=== PATIENT | female | born 1995 | race Caucasian/White ===

== ENCOUNTER 2021-03-28 11:28 | Emergency (ER) | payer BC ==
[2021-03-28 12:03] LABS: Urine Blood 1+ (Negative); Urine Glucose Negative (Negative); Urine Protein Trace (Negative); Urine Specific Gravity >=1.030 (1.005-1.030)
[2021-03-28 12:28] LABS: Absolute Lymphocytes (CBC) 1.3 K/uL (0.7-4.9); Basophils % 0.3 % (0-1.3); Hematocrit 43.7 % (36.0-45.0); Lymphocytes % 10.5 % (15.3-44.8); MPV 7.8 fL (7.6-11.3); RBC Red Blood Cell Count 4.77 M/uL (3.86-4.86)
[2021-03-28 12:37] LABS: ALT/SGPT 19 U/L (12-78); AST/SGOT 12 U/L (15-37); Albumin 3.6 g/dL (3.4-5.0); Alkaline Phosphatase 53 U/L (45-117); BUN Blood Urea Nitrogen 10 mg/dL (7-18); Bicarbonate 26 mmol/L (21-32); Bilirubin Direct < 0.1 mg/dL (0-0.2); Bilirubin Total 0.3 mg/dL (0.2-1.0); Glucose Level 131 mg/dL (74-106); Lipase 50 U/L (73-393); Potassium 4.5 mmol/L (3.5-5.1); Protein, Total 7.8 g/dL (6.4-8.2); Sodium Level 141 mmol/L (136-145)
--- NOTE | 2021-03-28 13:51 | RAD REPORT ---
EXAM DESCRIPTION: US - Abdomen Exam Limited - 03/28/2021 1:10 pm CLINICAL HISTORY: Abdominal pain. Right upper quadrant pain COMPARISON: None. FINDINGS: The gallbladder wall is not thickened. A gallstone is not seen. The biliary tree is normal caliber. IMPRESSION: Unremarkable gallbladder ultrasound.
--- NOTE | 2021-03-28 14:16 | EDPHYS ---
Physician Documentation [facility] Name: Bharati Boyce Age: 26 yrs Sex: Female : 1995 Arrival Date: 03/28/2021 Time: 11:28 Bed 6 Private MD: ED Physician Sanjuanita Murcia HPI: 03/28 14:10 This 26 yrs old Female presents to ER via Ambulatory with complaints of ma2 Diarrhea, Abdominal Cramping. 14:10 Onset: The symptoms/episode began/occurred gradually, 2 day(s) ago. Possible causes: ma2 unknown. Associated signs and symptoms: Pertinent negatives: belching, dysuria, flatulence, GI bleeding, hematuria. Severity of symptoms: At their worst the symptoms were moderate in the emergency department the symptoms are unchanged. The patient has not experienced similar symptoms in the past. here with diarrhea and abdominal cramping . 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 - Social history:: Smoking status: Patient denies any tobacco usage or history of. Patient/guardian denies using alcohol, street drugs, The patient lives with family. - Family history:: not pertinent. ROS: 14:10 Constitutional: Negative for fever, chills, and weight loss. ma2 14:10 All other systems are negative. Exam: 14:10 Constitutional: This is a well developed, well nourished patient who is awake, alert, ma2 and in no acute distress. ENT: Nares patent. No nasal discharge, no septal abnormalities noted. Tympanic membranes are normal and external auditory canals are clear. Oropharynx with no redness, swelling, or masses, exudates, or evidence of obstruction, uvula midline. Mucous membranes moist. Neck: Trachea midline, no thyromegaly or masses palpated, and no cervical lymphadenopathy. Supple, full range of motion without nuchal rigidity, or vertebral point tenderness. No Meningismus. Chest/axilla: Normal chest wall appearance and motion. Nontender with no deformity. No lesions are appreciated. Cardiovascular: Regular rate and rhythm with a normal S1 and S2. No gallops, murmurs, or rubs. Normal PMI, no JVD. No pulse deficits. Respiratory: Lungs have equal breath sounds bilaterally, clear to auscultation and percussion. No rales, rhonchi or wheezes noted. No increased work of breathing, no retractions or nasal flaring. Abdomen/GI: Soft, non-tender, with normal bowel sounds. No distension or tympany. No guarding or rebound. No evidence of tenderness throughout. Skin: Warm, dry with normal turgor. Normal color with no rashes, no lesions, and no evidence of cellulitis. MS/ Extremity: Pulses equal, no cyanosis. Neurovascular intact. Full, normal range of motion. Neuro: Awake and alert, GCS 15, oriented to person, place, time, and situation. Cranial nerves II-XII grossly intact. Motor strength 5/5 in all extremities. Sensory grossly intact. Cerebellar exam normal. Normal gait. Vital Signs: 11:32 BP 134 / 91; Pulse 91; Resp 18 S; Temp 97.6(TE); Pulse Ox 100% on R/A; Weight 75.75 kg aa5 (R); Height 5 ft. 4 in. (162.56 cm) (R); 13:00 BP 130 / 78; Pulse 65; Resp 16; Pulse Ox 97% ; bp 14:46 BP 144 / 90; Pulse 62; Resp 17; Temp 97.8; Pulse Ox 97% ; bp 11:32 Body Mass Index 28.67 (75.75 kg, 162.56 cm) aa5 MDM: 11:41 Patient medically screened. ma2 14:10 Differential diagnosis: gastritis, cholecystitis, pancreatitis, viral gastroenteritis, ma2 gastroenteritis. Data reviewed: vital signs, nurses notes. Counseling: I had a detailed discussion with the patient and/or guardian regarding: the historical points, exam findings, and any diagnostic results supporting the discharge/admit diagnosis, the presence of at least one elevated blood pressure reading (>120/80) during this emergency department visit, the need for outpatient follow up. Response to treatment: the patient's symptoms have markedly improved after treatment. ED course: i recommended ct a/p to rule out diverticulitis and appendicitis, patient declined d/t radiations. I also recommend antibiotics however she also declined. she states she will see her pcp as she does not want higher er bill. i explained all risk and benefits. she understands risk of not having ct abd including having a rupture appendix and sepsis, i explained return precaution. 03/28 11:40 Order name: Basic Metabolic Panel; Complete Time: 12:43 ma2 03/28 11:40 Order name: CBC with Diff; Complete Time: 12:43 ma2 03/28 11:40 Order name: Hepatic Function; Complete Time: 12:43 ma2 03/28 11:40 Order name: Lipase; Complete Time: 12:43 ma2 03/28 12:02 Order name: Urine --Ancillary (enter results); Complete Time: 13:51 eb 03/28 12:02 Order name: Urine Dipstick-Ancillary; Complete Time: 12:43 EDMS 03/28 11:40 Order name: Labs collected and sent; Complete Time: 12:47 ma2 03/28 11:40 Order name: Urine Dipstick-Ancillary (obtain specimen); Complete Time: 12:04 ma2 03/28 11:40 Order name: Urine Test (obtain specimen); Complete Time: 12:04 ma2 03/28 12:01 Order name: US Abdomen Limited; Complete Time: 13:58 ma2 Administered Medications: 12:02 Not Given (Patient Refused): NS 0.9% 1000 ml IV at 1 bolus Per protocol; 1000 mL bolus ap3 Disposition Summary: 03/28/21 14:15 Discharge Ordered Location: Home ma2 Condition: Stable ma2 Diagnosis - Abdominal pain, Generalized ma2 - Diarrhea, unspecified ma2 Followup: ma2 - With: Private Physician - When: Tomorrow - Reason: Continuance of care Discharge Instructions: - Discharge Summary Sheet ma2 - Abdominal Pain, Adult ma2 - Food Choices to Help Relieve Diarrhea, Adult ma2 - Diarrhea, Adult ma2 Forms: - Medication Reconciliation Form ma2 - Thank You Letter ma2 - Antibiotic Education ma2 - Prescription Opioid Use ma2 Signatures: Dispatcher [employer] Nasima Adams RN RN [email or web address] Sanjuanita Murcia MD MD ma2 Kathy Morrison RN ap3 Corrections: (The following items were deleted from the chart) 11:34 11:34 Allergies: Aspirin; aa5 aa5 12:02 11:40 IV Saline Lock ordered. ma2 ap3 12:04 11:41 Abdomen Pelvis W Con+CT.RAD.BRZ ordered. EDMS EDMS
--- NOTE | 2021-03-28 14:16 | ER ---
Nurse's Notes [facility] Name: Bharati Boyce Age: 26 yrs Sex: Female : 1995 Arrival Date: 03/28/2021 Time: 11:28 Bed 6 Private MD: Diagnosis: Abdominal pain, Generalized;Diarrhea, unspecified Presentation: 03/28 11:32 Chief complaint: Patient states: generalized abd pain since and diarrhea. Pt aa5 denies vomiting, reports nausea. Coronavirus screen: diarrhea, nausea. Ebola Screen: No symptoms or risks identified at this time. Initial Sepsis Screen: Does the patient meet any 2 criteria? No. Patient's initial sepsis screen is negative. Does the patient have a suspected source of infection? No. Patient's initial sepsis screen is negative. Risk Assessment: Do you want to hurt yourself or someone else? Patient reports no desire to harm self or others. Onset of symptoms was February 2021. 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 - Social history:: Smoking status: Patient denies any tobacco usage or history of. Patient/guardian denies using alcohol, street drugs, The patient lives with family. - Family history:: not pertinent. Screenin:07 Abuse screen: Denies threats or abuse. Nutritional screening: No deficits noted. ap3 Tuberculosis screening: No symptoms or risk factors identified. Fall Risk None identified. Assessment: 12:01 Reassessment: Pt is refusing IV and CT. Patient verbalizes understanding importance of ss these tests, but states that she does not want any IV medications and only would like an ultrasound. Dr. Murcia notified. 12:04 Reassessment: lab is at the bedside to collect labs. General: Appears in no apparent ap3 distress. Behavior is anxious. Pain: Complains of pain in abdomen. Neuro: Level of Consciousness is awake, alert, obeys commands, Oriented to person, place, time, situation, Gait is steady, Speech is normal. Cardiovascular: Patient's skin is warm and dry. Respiratory: Airway is patent Respiratory effort is even, unlabored, Respiratory pattern is regular, symmetrical. GI: Abdomen is flat, Reports lower abdominal pain, upper abdominal pain, diarrhea. 13:00 Reassessment: No changes from previously documented assessment. Patient and/or family bp updated on plan of care and expected duration. Pain level reassessed. U/S AT B/S. 14:45 Reassessment: PT D/C HOME AMBULATORY, DX WITH DIARRHEA. bp Vital Signs: 11:32 BP 134 / 91; Pulse 91; Resp 18 S; Temp 97.6(TE); Pulse Ox 100% on R/A; Weight 75.75 kg aa5 (R); Height 5 ft. 4 in. (162.56 cm) (R); 13:00 BP 130 / 78; Pulse 65; Resp 16; Pulse Ox 97% ; bp 14:46 BP 144 / 90; Pulse 62; Resp 17; Temp 97.8; Pulse Ox 97% ; bp 11:32 Body Mass Index 28.67 (75.75 kg, 162.56 cm) aa5 ED Course: 11:28 Patient arrived in ED. am2 11:32 Arm band placed on. aa5 11:34 Triage completed. aa5 11:34 Jerel Rodriguez PA is PHCP. [facility] 11:34 Sanjuanita Murcia MD is Attending Physician. [facility] 11:38 Kathy Morrison, GONZALO is Primary Nurse. ap3 12:07 Patient has correct armband on for positive identification. Bed in low position. Call ap3 light in reach. Side rails up X2. Adult w/ patient. Pulse ox on. NIBP on. Door closed. Noise minimized. Warm blanket given. 13:10 US Abdomen Limited In Process Unspecified. EDMS 14:46 No provider procedures requiring assistance completed. Patient did not have IV access bp during this emergency room visit. Administered Medications: 12:02 Not Given (Patient Refused): NS 0.9% 1000 ml IV at 1 bolus Per protocol; 1000 mL bolus ap3 Outcome: 14:15 Discharge ordered by . ma2 14:46 Discharged to home ambulatory, with family. bp 14:46 Condition: stable 14:46 Discharge instructions given to patient, Instructed on discharge instructions, follow up and referral plans. Demonstrated understanding of instructions, follow-up care. 14:48 Patient left the ED. bp Signatures: Dispatcher [employer] EDMS Jerel Rodriguez PA PA jmm Calderon, Audri, RN RN aa5 Bharati Hamilton RN RN ss Kathy Copeland am2 Owen Keene RN RN bp Sanjuanita Murcia MD MD ma2 Kathy Morrison RN RN ap3 Corrections: (The following items were deleted from the chart) 11:34 11:34 Allergies: Aspirin; aa5 aa5
[2021-03-28 15:01] VITALS: O2SAT 97
[2021-03-28 15:05] VITALS: BP 144/90; TEMP 97.8
== END 2021-03-28 14:48 | disposition home or self-care (01) ==
LOC: ER 11:28
DX: R19.7 Diarrhea, unspecified (principal)
CPT/HCPCS: 36415; 76705; 80048; 80076; 81003; 81025; 83690; 85025; 99283